=== PATIENT | male | born 1970 | race Caucasian/White ===

== ENCOUNTER 2019-06-01 09:34 | Outpatient (CLI) | payer OTHER, MEDICAID, SELFPAY ==
[2019-06-01 09:59] LABS: Basophils Absolute Auto 0.1 K/mm3 (0.0-0.1); Basophils Percent Auto 1.3 % (0.2-1.2); Eosinophils Absolute Auto 0.2 K/mm3 (0-0.3); Eosinophils Percent Auto 2.5 % (0-4.4); Hematocrit 45.2 % (42.0-52.0); Hemoglobin 15.2 g/dL (14.0-18.0); Immature Granulocyte Absolute 0.04 K/mm3 (0.00-0.031); Immature Granulocyte Percent A 0.5 % (0-0.5); Lymphocytes Absolute Auto 1.99 K/mm3 (0.9-3.2); Lymphocytes Percent Auto 23.4 % (18.3-44.2); Mean Corpuscular HGB Conc 33.6 g/dl (32-36); Mean Corpuscular Volume 95.2 fl (80-100); Mean Platelet Volume 9.7 fl (7.4-10.4); Monocytes Absolute Auto 0.7 K/mm3 (0.1-0.6); Monocytes Percent Auto 8.5 % (2.6-8.5); Neutrophils Absolute Auto 5.4 K/mm3 (1.3-6.7); Neutrophils Percent Auto 63.8 % (45.5-73.1); Platelet Count Result 201 k/mm3 (150-375); Red Blood Count 4.75 M/mm3 (4.6-6.20); Red Cell Distribution Width 12.6 % (11.5-14.5); White Blood Count 8.5 K/mm3 (4.5-10.0)
[2019-06-01 10:09] LABS: Urine Cotinine NEGATIVE
[2019-06-01 10:11] LABS: Albumin Level 4.7 g/dL (3.5-5.1); Blood Urea Nitrogen 18 mg/dL (9-20); Calcium 9.8 mg/dL (8.4-10.2); Carbon Dioxide 27 mmol/L (22-30); Chloride 98 mmol/L (98-107); Estimated Glomerular Filt Rate > 60; Glucose 102 mg/dL (75-110); Potassium 4.1 mmol/L (3.4-5.0); Sodium 139 mmol/L (137-145)
== END 2019-06-01 09:35 | disposition home or self-care (01) ==
PROVIDERS: PCP Family Medicine; Visit Provider Orthopaedic Surgery
DX: M17.11 Unilateral primary osteoarthritis, right knee (principal); Z79.899 Other long term (current) drug therapy; Z87.891 Personal history of nicotine dependence
CPT/HCPCS: 36415; 80048; 80307; 82040; 85025; 87070

== ENCOUNTER 2019-06-15 00:11 | Day surgery (SDC) | payer OTHER, MEDICAID, SELFPAY ==
[2019-06-01 09:34] VITALS: BMI 21.7
--- NOTE | 2019-06-12 10:12 | HP_ITS ---
DATE OF SERVICE: 06/15/2019 ADMIT DIAGNOSIS: Degenerative joint disease, right knee. HISTORY OF PRESENT ILLNESS: The patient is a 48-year-old male patient of Dr. Matias, who presents today for a right total knee arthroplasty. He has recently undergone left total knee arthroplasty with Dr. Iglesias. He has recovered very quickly and done well, feels he is ready to proceed with the right. He has severe medial compartment arthritis with a significant varus deformity in the knee. He had continued symptoms in the knee. Again, he feels he has recovered well from the left total knee to proceed with the right. PAST MEDICAL HISTORY: Only significant for the total knee arthroplasty approximately 7 to 8 weeks ago. MEDICATIONS: His only current medication list is lisinopril/hydrochlorothiazide . ALLERGIES: HE HAS NO KNOWN DRUG ALLERGIES. FAMILY HISTORY: Noncontributory. SOCIAL HISTORY: He is a former smoker. PHYSICAL EXAMINATION: VITAL SIGNS: He is 5 feet 10 inches, 250 pounds. Other vital signs per nursing on the morning of surgery. HEENT: Grossly normal. LUNGS: Clear bilaterally. HEART: Regular rate and rhythm. EXTREMITIES: His right knee has a prominent fixed varus deformity, range of motion 0-135. He has normal sensation to the left lower extremity. Left hip has full range of motion without discomfort. Negative Stinchfield maneuver. Skin is all normal. 2+ dorsalis pedis and posterior tibial pulse. 5/5 strength in all muscle groups, left lower extremity. IMAGING DATA: X-rays demonstrate severe varus deformity of the medial compartment with medial compartment arthritis. IMPRESSION: The patient has severe medial compartment arthritis. Again, he did very well with his left total knee and is ready to proceed with the right. Surgical procedure as well as risks and complications were reviewed. All questions were answered to proceed. We plan to use Eliquis followed by aspirin for DVT prophylaxis. His nasal swab was negative. His hemoglobin is 15.2, platelets 201. Chem-panel is all within normal limits. Creatinine 0.80, GFR greater than 60. We will also plan to use Celebrex postoperatively for pain control as well. D I MT: Juliet
[2019-06-15] VITALS (14 sets, daily range): BP systolic 101–144; BP diastolic 62–88; PULSE 69–115; RESP 12–18; TEMP 36.4–36.7; O2SAT 92–98; BMI 36.5
--- NOTE | ~2019-06-15 | XR_ITS ---
EXAMINATION: XR knee RT 2V DATE: 06/15/2019 12:44 INDICATION: Right knee arthroplasty. Postop. TECHNIQUE: 2 views of right knee were obtained. COMPARISON: None. FINDINGS: There is a total right knee arthroplasty without patellar resurfacing in near-anatomic alig nment. There is a tiny osteophyte of the patella. No fracture. There is gas in the knee joint and sof t tissues, consistent with recent surgery. IMPRESSION: 1. Total right knee arthroplasty in near-anatomic alignment. Reviewed, dictated and finalized at location A.
[2019-06-15] MEDS: IBUPROFEN IV 800 MG/200 ML 800 MG/200 ML BAG 400 MG IVPB (06:40)
[2019-06-15] MEDS: LACTATED RINGERS 1,000 ML 30 ML IV CONT ×2 (06:40→12:45)
--- NOTE | 2019-06-15 06:45 | WPDANESEPPF ---
Anes - Initial Pre Proc Eval Procedure: Operation Date: 06/15/19 07:30 Proposed Procedures p Right Total Knee Arthroplasty - Volodymyr Iglesias MD Date/Time: 06/15/19 06:45 Surgeon: Volodymyr Iglesias MD Pre Op Diagnosis: Rt Knee OA Patient Data Age: 48 Gender: M Height: 1.83 m Weight: 122.1 kg Allergies Allergy/AdvReac Type Severity Reaction Status Date / Time No Known Allergies Allergy Unverified 06/01/19 09:52 Home Medications Medication Instructions Recorded Confirmed Type lisinopril-hydrochlorothiazide 1 tablet PO DAILY 03/18/19 06/01/19 History multivitamin [Multiple Vitamins] 1 tablet PO BID 06/01/19 06/01/19 History polyethylene glycol 3350 [Miralax] 17 g PO QAM PRN 06/01/19 06/01/19 History Patient hx anesthesia problems: none Family hx anesthesia problems: none PMFSH Past Medical History Medical History (Updated 03/26/19 @ 11:36 by Anna Anderson PA-C) Gastroesophageal reflux disease Hepatic steatosis HTN (hypertension) Obesity LOVE on CPAP Peripheral neuropathy Surgical History Surgical History (Updated 03/26/19 @ 09:36 by Marixa Davis DO) History of carpal tunnel release History of excision of lamina of cervical vertebra for decompression of spinal cord Patient had decompression and fusion of C4 through T5 in January 2019 S/P total knee arthroplasty 03/25/[address] Iglesias Family History Family History (Updated 03/26/19 @ 09:34 by Marixa Davis DO) Other Diabetes mellitus Heart disease Social History Social History (Updated 03/26/19 @ 09:33 by Marixa Davis DO) Social History: The patient lives with his girlfriend who is still a smoker. The patient himself quit smoking 2 years ago at the time his girlfriend had a heart attack. He started smoking at age 13. He smoked half a pack per day for 33 years before he quit. He decreased his alcohol consumption several months ago in his drinking 2 alcoholic beverages a day. 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 He is still walking with a walker at this time. Smoking packs per day: 0.5 Smoking cigarettes per day: 10.0 Years smoked: 33 Smoking pack-years: 16.50 Smoking status: Former smoker Tobacco type: cigarettes and cigars Second hand tobacco smoke exposure: Yes Smoking end date: 08/06/16 Alcohol intake: current Drinks per week: 2 Substance use: never Gender identity (if verbalized by the patient): Male Spiritual care concerns: No Agree to blood products: Yes Anes - Eval Final PreProcedure Day of Procedure 06/15/19 06:45 Patient weight: obese Heart: regular rate and rhythm Lungs: clear to auscultation and normal air movement Airway: Mallampati scale class II Neurological: alert and oriented Last oral intake: >/= 8 hours ASA classification: III Emergent: no Anesthetic plan: proceed Anesthesia type and monitoring: general ETT and standard monitoring Informed Consent: The patient's anesthetic plan and its attendant risks and benefits were discussed with the patient/family/POA. Questions were solicited and answers provided to the satisfaction of the patient/family/POA.
--- NOTE | 2019-06-15 07:27 | WPDHPUPDATE1 ---
History and Physical Update Update Date/Time: 06/15/19 07:27 History and Physical has been reviewed, including an updated exam of the patient. There are NO changes in the patient's condition. Risks, benefits, and alternatives have been discussed and questions answered. Patient agrees to proceed with procedure.
[2019-06-15] MEDS: ceFAZolin SODIUM 1 GM VIAL IV PUSH (07:34)
[2019-06-15] MEDS: ceFAZolin 2 GM/D5W 50 ML 2 GM/50 ML BAG IVPB (07:34)
[2019-06-15] MEDS: ceFAZolin SODIUM 1 GM VIAL 3 GM IRRIGATION (08:13)
[2019-06-15] MEDS: GENTAMICIN BONE CEMENT REFOBACIN 1 EACH TOPICAL (09:10)
[2019-06-15] MEDS: ceFAZolin SODIUM 1 GM VIAL 2 GM IV PUSH (11:32)
--- NOTE | 2019-06-15 12:24 | PM.PROC ---
Procedure Note - Detailed Date of procedure: 06/15/19 Pre-op diagnosis: Rt Knee OA Post-op diagnosis: same Procedure performed: Right total knee arthroplasty with constrained implants due to severe lateral capsular stretching Description of procedure: There was extra difficulty with the procedure because of his significant deformity his obesity with a BMI of 36.5 and his lateral ligamentous and capsular stretching from his deformity. This added released and our to the procedure. Patient brought to the operating room general anesthesia was administered. He received 3 g of Ancef weight based vancomycin preoperatively in the right knee prepped and draped in usual fashion. limb was exsanguinated tourniquet elevated to 300 mm of mercury. An 8 inch longitudinal midline incision was used and a standard parapatellar arthrotomy was carried out. Again the articular cartilage on the patella was normal. There were small inferior osteophyte was trimmed. Based on his young age and normal cartilage I elected to not resurface the patella. infrapatellar and suprapatellar fat pads were excised and a quadriceps synovectomy performed. a guide lady was inserted down the femoral canal after aspiration canal contents in using the 5? valgus cutting bushing 9 mm of bone removed the distal femur. this removed about 9-1/2 laterally and medially because of the severe wear it removed about 7. The the tibia was cut making a skim cut off the low point of the medial tibial plateau. This removed 10 a 0.5 mm laterally. I intentionally made the cut in 1? of varus because his 13? anatomic axis varus deformity that he had preoperatively due to distraction of lateral joint space primarily no bone loss medially on the tibia. Whitesides line and the trans epicondylar axis were drawn on the femur. the PCL was recessed meniscus remnants excised. in extension we are still much tighter medially than laterally. at 90? of flexion we had a mm of joint space medially and the 16 mm of joint space laterally even with the tibia cut at 2? it of varus. We set the femoral sizing guide to 5? of external rotation which matched Whitesides line well was little bit external to the trans epicondylar axis line that we estimated. The 75 Baytex cutting block was applied in the AP and chamfer cuts were made. The 75 was a mm wide. It would not worked anteriorly to posteriorly. we plan to down size to the 72.5 later if we felt it was necessary change the rotation the femur a little bit. The tibia was noted sized to a vanguard 79. This was translated too close to the lateral edge I and the rotation set referenced off the medial 1/3 of the tibial tubercle anterior cortex of the tibial plateau and the alignment of the foot. this was punched. We then removed chisel worker medial osteophyte and a little bit of the posterior aspect of the medial tibial plateau after carefully peeling the deep capsule and periosteum approximately 2-1/2 cm below the level of the cut tibia. we did not release any semimembranosus. The posterior capsule attached to the medial tibial plateau posteriorly with some early recessed. We then trialed and with the 12 I insert the knee came to full extension with no medial opening and approximately 8 mm of lateral opening to varus stress. we trialed with 14 and this lacked about 5 or 6? of extension and still been of laterally 6 mm and was tight at 90? of flexion. with the 12 back and we had 2 mm of medial opening with the and 3 mm lateral opening. We were a little bit loose there but the medial collateral tension balance was appropriate. At this point I made the decision that we would need to use constraint. The other alternative would be to release medial collateral ligament off the tibia and increased the poly thickness until the lateral side provided stability but based on the pronounced laxity of the lateral capsular structures evident I felt that would be of questionable long-term stability. therefore can stra
[2019-06-15] MEDS: HYDROMORPHONE HCL 1 MG/ML INJ 0.25 MG IV PUSH ×8 (13:55→14:30)
--- NOTE | 2019-06-15 15:09 | ADMGEN ---
This patient, Basilio Luther, was admitted to [facility] Surg Room 333-01. Patient/family oriented to hospital policies and general routines including ID bracelet, bed and alarms, visiting hours, pain management, procedures, bathroom and other care routines, personal items, smoking policy, room service/diet, and visiting hours. Valuables list has been completed. Information on how to activate the Rapid Response Team has been discussed. Patient/Family are encouraged to report perceived risks to care and to ask questions if they do not understand what they are told or what they should do.
[2019-06-15] MEDS: SENNA/DOCUSATE SODIUM TABLET 2 TAB PO (17:00)
[2019-06-15] MEDS: FAMOTIDINE 20 MG TABLET PO (21:01)
[2019-06-16 02:00] VITALS: BP 111/60; PULSE 84; RESP 16; TEMP 36.6; O2SAT 96
[2019-06-16 06:00] VITALS: BP 119/68; PULSE 96; RESP 18; TEMP 36.8; O2SAT 97
--- NOTE | 2019-06-16 06:13 | PM.PNORT ---
Progress Note: A&P Additional Plan POD 1 alert avss ,wd-dry NVI, pain is well controlled , has been up to chair last night, pt is doing very well, plan for him to do morning PT then home, labs-pending Subjective Subjective Date/Time Seen: 06/16/19 06:13 Objective Data Vital Signs Vital Signs: Vital Signs - 24 hr 06/15/19 07:10 06/15/19 12:45 06/15/19 13:00 Temperature 36.7 C 36.4 C Pulse Rate 69 113 H 114 H Respiratory Rate 18 15 13 Blood Pressure 117/65 123/72 126/73 Pulse Oximetry 96 95 97 06/15/19 13:15 06/15/19 13:30 06/15/19 13:45 Temperature Pulse Rate 109 H 111 H 115 H Respiratory Rate 14 15 14 Blood Pressure 144/62 H 125/80 140/88 Pulse Oximetry 92 92 93 06/15/19 14:00 06/15/19 14:15 06/15/19 14:30 Temperature Pulse Rate 98 108 H 105 H Respiratory Rate 14 12 13 Blood Pressure 143/87 H 127/85 123/73 Pulse Oximetry 93 96 94 06/15/19 14:50 06/15/19 14:51 06/15/19 15:17 Temperature 36.4 C 36.4 C 36.4 C Pulse Rate 107 H 109 H 108 H Respiratory Rate 18 18 18 Blood Pressure 134/76 130/78 142/84 H Pulse Oximetry 96 96 98 06/15/19 16:33 06/15/19 22:00 06/16/19 02:00 Temperature 36.7 C 36.7 C 36.6 C Pulse Rate 100 108 H 84 Respiratory Rate 18 16 16 Blood Pressure 130/70 101/64 111/60 Pulse Oximetry 96 97 96 Intake/Output Intake/Output: Intake & Output 06/13/19 06/14/19 06/15/19 06/16/19 22:59 23:59 23:59 23:59 Intake Total 2240 1700 Output Total 1200 2750 Balance 1040 -1050 Meds/Results Medications: Active Medications Generic Name Dose Route Start Last Admin Trade Name Freq PRN Reason Stop Dose Admin Apixaban 2.5 mg 06/16/19 09:00 Eliquis PO 06/27/19 21:01 Q12HR SARAHY Bisacodyl 10 mg 06/15/19 14:32 Dulcolax Suppository RECTAL DAILY PRN Constipation Cephalexin HCl 500 mg 06/16/19 09:00 Keflex Capsule PO 06/23/19 09:01 Q12HR SARAHY Diphenhydramine HCl 25 mg 06/15/19 14:32 Benadryl Inj IV PUSH Q6H PRN Itching Famotidine 20 mg 06/15/19 21:00 06/15/19 21:01 Pepcid PO 20 mg Q12HR SARAHY Administration Cefazolin Sodium 1 gm in 50 mls @ 100 mls/hr 06/15/19 15:30 06/15/19 23:58 Ancef 1 Gm/D5w 50 Ml Pm IVPB 06/16/19 07:59 Infused Q8H SARAHY Infusion Vancomycin HCl 1,000 mg in 250 mls @ 250 mls/hr 06/15/19 19:00 06/16/19 06:01 Vancomycin 1,000 Mg/D5w 250 Ml IVPB 06/16/19 07:59 250 mls/hr Q12H SARAHY Administration Morphine Sulfate 2 mg 06/15/19 14:32 Morphine Sulfate Inj IV PUSH Q2H PRN Breakthrough pain rated 4-6 Naloxone HCl 0.1 mg 06/15/19 14:32 Narcan IV PUSH Q2M PRN Opiate Reversal Ondansetron HCl 4 mg 06/15/19 14:32 Zofran Inj IV PUSH Q4H PRN Nausea And Vomiting Oxycodone/Acetaminophen 1 tablet 06/15/19 14:32 06/16/19 04:57 Percocet 5-325 Mg PO 1 tablet Q4H PRN Administration Pain Rated 4-6 Oxycodone/Acetaminophen 1 tablet 06/15/19 14:32 06/16/19 04:57 Percocet 5-325 Mg PO 06/16/19 14:33 1 tablet Q4HR SARAHY Administration Polyethylene Glycol 17 gm 06/15/19 14:32 Miralax PO QAM PRN Constipation Senna/Docusate Sodium 2 tab 06/15/19 17:00 06/15/19 17:00 Senokot S Tablet PO 2 tab BID SARAHY Administration Radiology Results: ITS Impressions Knee X-Ray 06/15/19 13:09 IMPRESSION: 1. Total right knee arthroplasty in near-anatomic alignment. Labs Labs: Laboratory Results - last 24 hr 06/15/19 05:49 Blood Type O Positive Antibody Screen Negative
[2019-06-16 06:31] LABS: Basophils Percent Auto 0.2 % (0.2-1.2); Hematocrit 34.8 % (42.0-52.0); Hemoglobin 11.8 g/dL (14.0-18.0); Immature Granulocyte Absolute 0.09 K/mm3 (0.00-0.031); Immature Granulocyte Percent A 0.8 % (0-0.5); Lymphocytes Absolute Auto 1.31 K/mm3 (0.9-3.2); Lymphocytes Percent Auto 11.7 % (18.3-44.2); Mean Corpuscular HGB Conc 33.9 g/dl (32-36); Mean Corpuscular Hemoglobin 32.2 pg (26-34); Mean Corpuscular Volume 95.1 fl (80-100); Mean Platelet Volume 9.8 fl (7.4-10.4); Neutrophils Absolute Auto 8.8 K/mm3 (1.3-6.7); Neutrophils Percent Auto 78.3 % (45.5-73.1); Platelet Count Result 208 k/mm3 (150-375); Red Blood Count 3.66 M/mm3 (4.6-6.20); Red Cell Distribution Width 12.5 % (11.5-14.5); White Blood Count 11.2 K/mm3 (4.5-10.0)
[2019-06-16 06:40] LABS: Blood Urea Nitrogen 17 mg/dL (9-20); Calcium 8.8 mg/dL (8.4-10.2); Carbon Dioxide 25 mmol/L (22-30); Chloride 98 mmol/L (98-107); Estimated CRCL calculation 147 ml/min; Estimated Glomerular Filt Rate > 60; Glucose 126 mg/dL (75-110); Sodium 133 mmol/L (137-145)
--- NOTE | 2019-06-16 08:20 | WPDANESPN ---
Anes - Prog Note Post-Op Date/Time: 06/16/19 08:20 Cardiovascular status: normal Respiratory status: normal Airway patency: baseline Mental status: baseline Post-Op hydration status: normal Vital Signs: Last Vital Signs Temp 36.8 C 06/16/19 06:00 Pulse 96 06/16/19 06:00 Resp 18 06/16/19 06:00 BP 119/68 06/16/19 06:00 Pulse Ox 97 06/16/19 06:00 I/O: Intake & Output 06/15/19 06/16/19 06/16/19 23:59 07:59 15:59 Intake Total 1090 2190 Output Total 1200 2750 Balance -110 -560 Laboratory Tests 06/16/19 05:53 06/16/19 05:54 06/16/19 06/16/19 05:53 05:54 WBC 11.2 H RBC 3.66 L Hgb 11.8 L D Hct 34.8 L MCV 95.1 MCH 32.2 MCHC 33.9 RDW 12.5 Plt Count 208 MPV 9.8 Immature Gran % (Auto) 0.8 H Neut % (Auto) 78.3 H Lymph % (Auto) 11.7 L Christian % (Auto) 9.0 H Eos % (Auto) 0.0 Baso % (Auto) 0.2 Lymph # (Auto) 1.31 Christian # (Auto) 1.0 H Eos # (Auto) 0.0 Baso # (Auto) 0.0 Abs Immat Gran (auto) 0.09 H Absolute Neuts (auto) 8.8 H Absolute Nucleated RBC 0.0 Nucleated RBC % 0.0 Sodium 133 L Potassium 4.0 Chloride 98 Carbon Dioxide 25 BUN 17 Creatinine 0.70 Estim Creat Clear Calc 147 Estimated GFR > 60 Glucose 126 H Calcium 8.8 Post-procedural complaints: none Patient Feedback: Patient satisfied with anesthetic care.
[2019-06-16 09:44] VITALS: BP 132/74; PULSE 111; RESP 18; O2SAT 97
[2019-06-16] MEDS: APIXABAN 2.5 MG TABLET PO (09:48)
[2019-06-16] MEDS: SENNA/DOCUSATE SODIUM TABLET 2 TAB PO (09:49)
[2019-06-16] MEDS: CEPHALEXIN 500 MG CAPSULE PO (09:49)
[2019-06-16] MEDS: FAMOTIDINE 20 MG TABLET PO (09:50)
--- NOTE | 2019-06-16 14:31 | PC.NURSE ---
Patient discharged @1428, IV line removed, extra dressing sent home with patient, belongings list verified, patient sent home by POV and wheel chair. Patient left @1428.
--- NOTE | 2019-06-16 14:38 | PC.NURSE ---
Written prescriptions sent home with patient.
--- NOTE | 2019-06-17 04:20 | DS_ITS ---
DATE OF DISCHARGE: 06/16/2019 DIAGNOSIS: Degenerative joint disease, right knee. HOSPITAL COURSE: The patient is a 48-year-old male, who underwent right total knee arthroplasty by Dr. Iglesias on 06/15/2019, underwent the procedure without any complications. Postoperatively, he has been afebrile. Vital signs were stable. Neurovascularly intact. His wound is dry. He has Mepilex dressing over it. He is weightbearing as tolerated, but is going to use the walker for 6 weeks. He is on Eliquis for 2 weeks followed by Ecotrin for DVT prophylaxis. He is on Percocet for pain as well as MiraLAX, Senokot for constipation. He is also on 1 week of Keflex postoperatively as well. The patient overall has been afebrile. Vital signs are stable. He has been comfortable. His pain is well controlled. The patient has recently undergone left total knee, so he is very aware of the recovery. He is going to be discharged home on 06/15. He was advised to keep the leg elevated at home, but do his exercise on a regular basis. He has outpatient physical therapy starting either or Saturday of this week. He will go home on a regular diet. At the time of dictation, morning labs has not been completed yet. The patient was advised any questions or concerns once he goes home, call the office, otherwise, we will see him at his appointed date. Bro I MT: Juliet
== END 2019-06-16 14:28 | disposition home or self-care (01) ==
LOC: ANHSURGERY 06:09 → ANH3MEDSUR 14:42
PROVIDERS: Physician Assistant Surgical; Visit Provider Orthopaedic Surgery
PROC: (CPT 27447; principal; 2019-06-15 07:30)
DX: M17.11 Unilateral primary osteoarthritis, right knee (principal); K76.0 Fatty (change of) liver, not elsewhere classified; I10 Essential (primary) hypertension; K21.9 Gastro-esophageal reflux disease without esophagitis; G62.9 Polyneuropathy, unspecified; G47.33 Obstructive sleep apnea (adult) (pediatric); E66.9 Obesity, unspecified; Z68.36 Body mass index [BMI] 36.0-36.9, adult; Z98.1 Arthrodesis status; Z87.891 Personal history of nicotine dependence
CPT/HCPCS: 27447; 36415; 73560; 80048; 85025; 86850; 86900; 86901; 97116; 97161; 97165; A9270; C1713; C1776; J0131; J0171; J0690; J1100; J1170; J1741; J2250; J2270; J2405; J2704; J2795; J3010; J3370; J7120